=== PATIENT | female | born 1985 | race Caucasian/White ===

== ENCOUNTER 2019-10-03 02:49 | Emergency (ER) | payer OTHER ==
[2019-10-03 03:18] VITALS: BP 130/77; PULSE 83; TEMP 98.2; BMI 27.8
--- NOTE | 2019-10-03 03:32 | PDOC ---
History of Present Illness - General Chief Complaint: Psychiatric Stated Complaint: ANXIETY Time Seen by Provider: 10/03/19 03:15 History Source: Patient Exam Limitations: No Limitations - History of Present Illness Initial Comments: 10/03/19 03:31 34F PMH anxiety BIBEMS for palpitations, burning nonradiating chest pain on/off, tingling of the hands, and nausea after having a THC-infused meal. Has had prior "poor experiences" with marijuana. Occasional marijuana use. Denies sob, difficulty breathing, f/c, abd pain, weakness. Endorses one beer with the meal. NKDA. Denies co-ingestion. MEDS: lexapro and trazadone Past History - Medical History Allergies/Adverse Reactions: Allergies Allergy/AdvReac Type Severity Reaction Status Date / Time No Known Drug Allergies Allergy Verified 04/04/14 13:01 SHRIMP AdvReac Mild Cough Uncoded 04/04/14 13:01 Home Medications: Ambulatory Orders Albuterol Sulfate [Proair Hfa -] 1 - 2 inh PO TID PRN 04/04/14 Ascorbate Calcium [Vitamin C] 500 mg PO DAILY 04/04/14 Ferrous Sulfate [Slow Release Iron] 140 mg PO DAILY 04/04/14 Multivitamins [Multivit ([facility] Formulary)] 1 tab PO DAILY 04/04/14 Norgestimate-Ethinyl Estradiol [Ortho Tri-Cyclen Lo] 1 each PO DAILY 04/04/14 Metronidazole [Metrogel-Vaginal] 70 gm VG HS #0 gel.w.appl 04/08/14 Anemia: Yes Asthma: Yes - Reproductive History Is Patient Now?: No (says she is being worked up for PCOS) - Psycho-Social/Smoking History Smoking History: Never smoked - Substance Abuse Hx (Audit-C & DAST Scrn) How often the patient has a drink containing alcohol: Monthly or less Score: In Men: 4 or > Positive; In Women: 3 or > Positive: 1 Screen Result (Pos requires Nsg. Audit-10AR): Negative In the last yr the pt used illegal drug/Rx for NonMed reason: No Score: Yes response is considered Positive: 0 Screen Result (Positive result requires Nsg. DAST-10): Negative Review of Systems - Review of Systems Comments:: 10/03/19 08:44 CONSTITUTIONAL: Denies F / C HEENT: Denies headache, lightheadedness, dizziness, changes in vision / hearing RESP: Denies SOB CARD: +burning chest pain and palpitations GI: + prior nausea. Denies vomiting, abdominal pain : Denies dysuria NEURO: +tingling of the b/l hands Denies numbness, tingling, weakness MSK: Denies back pain SKIN: Denies rashes *Physical Exam - Vital Signs Last Vital Signs Temp Pulse Resp BP Pulse Ox 98.2 F 83 20 130/77 100 10/03/19 03:15 10/03/19 03:15 10/03/19 03:15 10/03/19 03:15 10/03/19 03:15 - Physical Exam 10/03/19 08:45 GEN: Well appearing but slightly anxious, comfortable. AAOx3. HEENT: NC/AT, EOMI, PERRL. No facial asymmetry. Normal voice. Supple neck w/ FROM. CV: S1/S2, RRR, no m/r/g LUNG: CTAB, no wheezes, crackles, rales, rhonchi. GI: Soft, ndnt, +BS, no guarding, no rebound. No masses. MSK: 2+ distal pulses. No LE edema. No obvious deformities of all extremities. SKIN: Warm, dry, no rashes appreciated. PSYCH: anxious o/w normal mood and affect, cooperative, fluent. NEURO: Moving all extremities well. 5/5 strength LE and UE b/l. symmetric intact sensation. ambulates w/ normal gait. Medical Decision Making - Medical Decision Making 10/03/19 08:45 34F experiencing palpitations, burning nonradiating chest pain on/off, tingling of the hands, and nausea after having a THC-infused meal. not a regular THC user. reassuring exam. EKG 04:11 HR 71, intervals and axis wnl, no LYNN/D, no TWI. Pt discharged home with return precautions and PCP f/u. Discharge - Discharge Information Problems reviewed: Yes Clinical Impression/Diagnosis: Marijuana intoxication Condition: Stable Disposition: HOME - Admission No - Follow up/Referral Referrals: Jorge Mckeon MD [Primary Care Provider] - - Patient Discharge Instructions Additional Instructions: Follow up with your Primary Care Doctor regarding this ED visit in the next 10- 15 days. Return to the nearest Emergency Department if you experience new or worsening symptoms, including but not limited to: - persistent symptoms - chest pain - shortness of breath - anything that concerns you - Post Discharge Activity
--- NOTE | 2019-10-03 05:07 | PDOC ---
Attending Attestation - Resident Resident Name: Joel Velasco - ED Attending Attestation I have performed the following: I have examined & evaluated the patient, The case was reviewed & discussed with the resident, I agree w/resident's findings & plan, Exceptions are as noted - HPI HPI: 10/03/19 05:05 34 F presenting to ED with anxiety after ingesting THC infused meal. Pt ate a meal prepared by her friend last night. Subsequently felt palpitations and anxiety. While in ED, pt reports that she feels much better. Able to ambulate with steady gait. - Physicial Exam PE: 10/03/19 05:06 See resident exam - Medical Decision Making 10/03/19 05:06 34 F with THC intoxication, now clinically sober. Ambulating with steady gait. - To be accompanied home by friend Pt is well appearing, with normal vitals. Clinically stable for DC at this time. I discussed the physical exam findings, ancillary test results and final diagnoses with the patient. I answered all of the patient's questions. The patient was satisfied with the care received and felt comfortable with the discharge plan and treatment plan. The patient agrees to follow up with the primary care physician within 24-72 hours. Discharge - Discharge Information Problems reviewed: Yes Clinical Impression/Diagnosis: Marijuana intoxication, Anxiety, Palpitation Condition: Stable Disposition: HOME - Follow up/Referral Referrals: Jorge Mckeon MD [Primary Care Provider] - - Patient Discharge Instructions Additional Instructions: Follow up with your Primary Care Doctor regarding this ED visit in the next 10- 15 days. Return to the nearest Emergency Department if you experience new or worsening symptoms, including but not limited to: - persistent symptoms - chest pain - shortness of breath - anything that concerns you - Post Discharge Activity
--- NOTE | 2019-10-03 18:00 | EKG ---
Test Reason : Blood Pressure : / mmHG Vent. Rate : 071 BPM Atrial Rate : 071 BPM P-R Int : 158 ms QRS Dur : 082 ms QT Int : 386 ms P-R-T Axes : 048 068 041 degrees QTc Int : 419 ms NORMAL SINUS RHYTHM NORMAL ECG WHEN COMPARED WITH ECG OF 04-APR-2014 12:09, NO SIGNIFICANT CHANGE WAS FOUND Confirmed by MD BREWSTER MOYSES ([id number]) on 10/03/2019 6:00:06 PM Referred By: Confirmed By:BETHEL BREWSTER MD
== END 2019-10-03 05:29 | disposition home or self-care (01) ==
LOC: JER 02:49
DX: F12.129 Cannabis abuse with intoxication, unspecified (principal); F41.9 Anxiety disorder, unspecified
CPT/HCPCS: 93005; 93010; 99283-25